=== PATIENT | female | born 1950 | race Caucasian/White ===

== ENCOUNTER 2020-09-27 16:19 | Emergency (ER) | payer MEDICARE, OTHER ==
[~2020-09-27] VITALS: Ht 172.7 cm; Wt 87.4 kg
[~2020-09-27 16:19] MED LIST: DOCU-180 PO; OXYC5CAP2 PO
[2020-09-27] MEDS ORDERED: SODIUM CHLORIDE FLUSH 10ML SYR IVF ONE (17:00)
[2020-09-27] MEDS ORDERED: ADENOSINE 6 MG/2 ML IVPush ONE ×2 (17:00)
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
[2020-09-27 17:09] LABS: BASOPHILS % (AUTO) 1 % (0-1); EOSINOPHILS % (AUTO) 0 % (1-7); LYMPHOCYTES % (AUTO) 17 % (22-44); MEAN CORPUSCULAR HEMOGLOBIN 32.6 pg (27.0-34.8); MEAN CORPUSCULAR HGB CONC 33.9 g/dL (32.4-35.8); MEAN PLATELET VOLUME 7.5 fL (7.4-10.4); MONOCYTES % (AUTO) 9 % (2-9); NEUTROPHILS % (AUTO) 74 % (42-75); PLATELET COUNT 359 x10^3/uL (130-400); RED BLOOD COUNT 4.72 x10^6/uL (3.82-5.3); RED CELL DISTRIBUTION WIDTH 13.6 % (9.6-15.2)
[2020-09-27] MEDS ORDERED: PROPOFOL 10 MG/ML, 20ML ONE (17:10)
--- NOTE | 2020-09-27 17:11 | NUR ---
REPORT GIVEN TO DANNY CATHERINE AND SHEBA CATHERINE.
[2020-09-27 17:13] LABS: MD NO
[2020-09-27 17:21] LABS: ALBUMIN 3.9 g/dL (3.4-5.0); ANION GAP 6 mmol/L (5-15); CALCIUM 9.2 mg/dL (8.5-10.1); CHLORIDE 107 mmol/L (98-107); CREATININE 0.85 mg/dL (0.55-1.02)
[2020-09-27 17:30] LABS: TROPONIN I < 0.015 ng/mL (0.000-0.045)
--- NOTE | 2020-09-27 17:40 | NUR ---
PT CARDIOVERTED BY DR. REYES. PT WAS GIVEN 80MG PROPOFOL BY DR. REYES AND CARDIOVERTED WITH 200J BIPHASIC ELECRIC SHOCK, RESULTING IN A NORMAL SINUS RHYTHM.
--- NOTE | 2020-09-27 17:50 | NUR ---
RECEIVED REPORT BACK FROM DANNY CATHERINE AND SHEBA CATHERINE.
--- NOTE | 2020-09-27 17:52 | NUR ---
PT ALERT, ORIENTED, ON RA, TALKING WITH DAUGHTER.
--- NOTE | 2020-09-27 17:52 | NUR ---
PT HAS BEEN SUCCESSFULLY CONVERTED BACK TO NSR.
[2020-09-27] MEDS ORDERED: PROPOFOL 10 MG/ML, 20ML IVPush ONE (18:00)
[2020-09-27 19:17] VITALS: BP 126/61
[2020-09-27] MEDS ORDERED: ADENOSINE 6 MG/2 ML ONE (23:23)
[2020-09-28] MEDS ORDERED: OXYC-307 PO (11:47)
[2020-09-28] MEDS ORDERED: CHOL10003 PO (11:47)
[2020-09-29] MEDS ORDERED: METO50TA82 PO (10:55)
[2020-09-29] MEDS ORDERED: APIX5TAB PO (10:55)
== END 2020-09-27 19:19 | disposition home or self-care (01) ==
LOC: ED 19:01
DX: I48.91 Unspecified atrial fibrillation (principal); R00.2 Palpitations; R00.0 Tachycardia, unspecified
CPT/HCPCS: 36415; 80048; 82040; 83880; 84436; 84443; 84484; 85025; 93005; 99284; J0153

== ENCOUNTER 2021-03-07 05:53 | Day surgery (SDC) | payer MEDICARE ==
[~2021-03-07] VITALS: Ht 172.7 cm; Wt 90.9 kg
[~2021-03-07 05:53] MED LIST changes: +APIX5TAB PO; +CHOL10003 PO; -DOCU-180 PO; +DOCU-192 PO; +METO50TA82 PO; +OXYC-307 PO
[2021-03-07] MEDS ORDERED: SODIUM CHLORIDE 0.9% 1,000 ML IV SCH (06:30)
[2021-03-07 07:16] VITALS: BP 131/55
[2021-03-07 07:25] LABS: ALANINE AMINOTRANSFERASE 18 U/L (12-78); ALBUMIN 3.9 g/dL (3.4-5.0); ANION GAP 6 mmol/L (5-15); CALCIUM 9.2 mg/dL (8.5-10.1); CHLORIDE 109 mmol/L (98-107); CREATININE 0.76 mg/dL (0.55-1.02)
[2021-03-07 07:27] LABS: BASOPHILS % (AUTO) 2 % (0-1); EOSINOPHILS % (AUTO) 3 % (1-7); LYMPHOCYTES % (AUTO) 35 % (22-44); MEAN CORPUSCULAR HEMOGLOBIN 31.6 pg (27.0-34.8); MEAN CORPUSCULAR HGB CONC 33.6 g/dL (32.4-35.8); MEAN PLATELET VOLUME 7.1 fL (7.4-10.4); MONOCYTES % (AUTO) 13 % (2-9); NEUTROPHILS % (AUTO) 47 % (42-75); PLATELET COUNT 287 x10^3/uL (130-400); RED BLOOD COUNT 4.68 x10^6/uL (3.82-5.3); RED CELL DISTRIBUTION WIDTH 14.3 % (9.6-15.2)
[2021-03-07 07:28] LABS: ALKALINE PHOSPHATASE 63 U/L (45-117); BILIRUBIN,TOTAL 0.5 mg/dL (0.2-1.0); TOTAL PROTEIN 7.8 g/dL (6.4-8.2)
[2021-03-07 07:33] VITALS: BP 156/76
[2021-03-07 08:01] LABS: INTERNATIONAL NORMALIZED RATIO 0.97 (0.93-1.1); PROTHROMBIN TIME 10.4 Seconds (9.6-11.5)
[2021-03-07] MEDS ORDERED: FENTANYL PF 250 MCG/5ML ONE (08:02)
[2021-03-07] MEDS ORDERED: MIDAZOLAM 1 MG/ML, 2ML ONE (08:02)
[2021-03-07] MEDS ORDERED: ROCURONIUM 10 MG/ML,10ML ONE (08:03)
[2021-03-07] MEDS ORDERED: PROPOFOL 10 MG/ML, 20ML ONE (08:03)
[2021-03-07] MEDS ORDERED: ONDANSETRON 2MG/ML, 2ML ONE (08:03)
[2021-03-07] MEDS ORDERED: DEXAMETHASONE 4 MG/ML, 1ML ONE (08:03)
[2021-03-07] MEDS ORDERED: LIDOCAINE 2%, 20ML ONE (08:15)
[2021-03-07] MEDS ORDERED: ISOPROTERENOL 0.2MG/ML, 5ML ONE (08:40)
[2021-03-07] MEDS ORDERED: ACETAMINOPHEN 325 MG TABLET PO PRN ×2 (11:00→11:30)
[2021-03-07] MEDS ORDERED: ONDANSETRON 2MG/ML, 2ML IVPush PRN ×2 (11:00→11:30)
[2021-03-07] MEDS ORDERED: hydrALAzine 20 MG/ML, 1ML IV PRN (11:30)
[2021-03-07] MEDS ORDERED: OXYcodone 5 MG/5 ML ORAL.SOL UDC PO PRN (11:30)
[2021-03-07] MEDS ORDERED: EPHEDRINE 50 MG/ML, 1ML IVPush PRN (11:30)
[2021-03-07] MEDS ORDERED: LORazepam 2 MG/ML, 1ML IVPush PRN (11:30)
[2021-03-07] MEDS ORDERED: FENTANYL PF 100 MCG/2ML IV PRN (11:30)
[2021-03-07] MEDS ORDERED: PROMETHAZINE 12.5 MG SUPP PR PRN (11:30)
[2021-03-07] MEDS ORDERED: PROMETHAZINE 25 MG/ML, 1ML IVPush PRN (11:30)
[2021-03-07] MEDS ORDERED: DIAZEPAM 5 MG/ML, 2ML IVPush PRN (11:30)
[2021-03-07] MEDS ORDERED: HYDROmorphone 1 MG/ML, 1ML INJ IVPush PRN (11:30)
[2021-03-07] MEDS ORDERED: MEPERIDINE/PF 25MG/0.5ML IVPush PRN (11:30)
[2021-03-07] MEDS ORDERED: DIPHENHYDRAMINE 50 MG/ML, 1ML IVPush PRN ×2 (11:30)
[2021-03-07] MEDS ORDERED: ALBUTEROL SULFATE 2.5 MG/3 ML NPPB PRN (11:30)
[2021-03-07] MEDS ORDERED: LABETALOL 5MG/ML, 20ML IV PRN (11:30)
[2021-03-07] MEDS ORDERED: MIDAZOLAM 1 MG/ML, 2ML IV PRN (11:30)
== END 2021-03-07 15:24 | disposition home or self-care (01) ==
LOC: CACL 05:53
PROVIDERS: ATTEND Internal Medicine Clinical Cardiac Electrophysiology
DX: I48.92 Unspecified atrial flutter (principal); I48.91 Unspecified atrial fibrillation; F12.10 Cannabis abuse, uncomplicated; Z20.822 Contact with and (suspected) exposure to COVID-19; Z79.01 Long term (current) use of anticoagulants; Z79.891 Long term (current) use of opiate analgesic; Z79.899 Other long term (current) drug therapy
CPT/HCPCS: 36415; 71046; 80053; 85025; 85610; 85730; 93005; 93312; 93321; 93325; 93613; 93623; 93653; C1730; C1732; C1894; J1100; J2250; J2405; J2704; J3010; U0003; U0005